=== PATIENT | male | born 1960 | race Caucasian/White ===

== ENCOUNTER 2017-07-01 05:39 | Day surgery (SDC) | payer OTHER ==
[~2017-07-01] VITALS: Ht 185.4 cm; Wt 176.0 kg
--- NOTE | ~2017-07-01 | O ---
[facility] [place] [address] OPERATIVE REPORT Name: BINH HERNANDEZ Room #: DEP [facility]..#: [id number] Admission: 07/01/17 Attend Phys: Refugio Tabares MD Discharge: 07/01/17 Date of : 56 Report #: [id number] THIS REPORT FOR: //name// CC: Shayan Tabares DATE OF SERVICE: 07/01/2017 PREOPERATIVE DIAGNOSIS: Right ankle peroneus longus and brevis tendon tears. POSTOPERATIVE DIAGNOSIS: Right ankle peroneus longus and brevis tendon tears. PROCEDURE: Right ankle peroneal tendon debridement with repair. SURGEON: Refugio Tabares M.D. BATHING SUIT MAKER: MANISH Sheldon. ANESTHESIA: General. ESTIMATED BLOOD LOSS: Minimal. DRAINS: None. TOURNIQUET TIME: 45 minutes. DESCRIPTION OF PROCEDURE: The patient brought to the operating room where he was placed under general anesthesia. Once under adequate general anesthesia, his right lower extremity was prepped and draped in sterile manner. The extremity was elevated, exsanguinated, tourniquet placed to 300 mmHg. A lateral incision just posterior to the fibula extending down to the base of the fifth metatarsal was made. This was dissected down through soft tissue to the peroneal tendon retinaculum. This was then incised and exposure was made of the peroneal tendons. The peroneus brevis tendon noted multiple longitudinal tears. The largest portion of tendon, which appeared healthy was then saved and the remainder was debrided with tenotomy scissors off of this tendon. This portion of the tendon was then tubularized with 3-0 Prolene suture in a running stitch manner. The peroneus longus tendon was thickened and fibrotic and noted significant laxity. This was debrided. A tendon rupture had occurred from the base of the first metatarsal. The tendon was then shortened, debrided and a tenodesis was then performed to the peroneus brevis tendon with 0 Ethibond suture. Excellent repair was achieved in this manner. The wound was then irrigated copiously and the retinaculum was then closed with 0 Ethibond suture, 2-0 Vicryl was used in subcutaneous tissues and jacky were used for the skin. The wounds were dressed with Xeroform, 4 x 4s, and sterile soft compressive dressing was placed. Tourniquet was let down at approximately [address] [address] OPERATIVE REPORT Name: MARYBINH Room #: DEP [facility] Raymundo#: [id number] Admission: 07/01/17 Attend Phys: Refugio Tabares MD Discharge: 07/01/17 Date of : 56 Report #: [id number] were pink and warm with good capillary refill. There were no complications from the procedure. The patient tolerated the procedure well and went to the recovery room without incident. <ELECTRONICALLY SIGNED> By: Refugio Tabares MD 07/03/17 1149 1248 1421 Refugio Tabares MD /nt
[~2017-07-01 05:39] MED LIST: ACCURETIC 10-11 EACH PO; ALDACTONE25 MG PO; ASPIRIN EC81 M1 PO; CO Q-10100 MG PO; COREG25 MG PO; FISH OIL 1,0001 EAC5 PO; LASIX 20 MG TAB20 MG PO; NORVASC5 MG PO; NUMOISYN300 ML PO; QUINU5 PD PO; ZESTORETIC 20-1 EAC3 PO
[2017-07-01 10:44] VITALS: BP 143/72
[2017-07-01 10:58] LABS: CALCIUM 9.3 mg/dL (8.5-10.1); CREATININE 1.4 mg/dL (0.7-1.3); POTASSIUM 4.2 mmol/L (3.5-5.1)
[2017-07-01] MEDS ORDERED: ASPIRIN325 PO (12:40)
[2017-07-01] MEDS ORDERED: PERCOCET 7.5-31 EACH PO (12:41)
[2017-07-01 13:01] VITALS: BP 143/72
== END 2017-07-01 13:50 | disposition home or self-care (01) ==
LOC: TBA 05:39 → OR 05:39
PROVIDERS: Orthopaedic Surgery Foot and Ankle Surgery
DX: S86.312A Strain of muscle(s) and tendon(s) of peroneal muscle group at lower leg level, left leg, initial encounter (principal); I10 Essential (primary) hypertension; G47.33 Obstructive sleep apnea (adult) (pediatric); Z98.890 Other specified postprocedural states; Z79.899 Other long term (current) drug therapy; Z79.82 Long term (current) use of aspirin; Z79.891 Long term (current) use of opiate analgesic; X58.XXXA Exposure to other specified factors, initial encounter; Y93.89 Activity, other specified; Y92.89 Other specified places as the place of occurrence of the external cause; Y99.8 Other external cause status
CPT/HCPCS: 50010; 50101; 50386; 51412; 56524; 56525; 57091; 62110; 62900; 70005

== ENCOUNTER → 2021-04-15 | Day surgery (SDC) | payer OTHER ==
[~2021-04-15] VITALS: Ht 185.4 cm; Wt 174.6 kg
[~2021-04-15] MED LIST changes: +ASPIRIN325 PO; +CO-ENZYME Q-1010 MG PO; +PERCOCET 7.5-31 EACH PO; +TYLENOL PM EX-1 EACH PO; +VITAMIN C500 M2 PO; +ZINC50 M3 PO
[2021-04-15 11:11] VITALS: BP 143/63
--- NOTE | 2021-04-15 12:17 | EKG ---
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
== END | disposition home or self-care (01) ==
LOC: OR 09:28
PROVIDERS: ATTEND Orthopaedic Surgery Foot and Ankle Surgery
DX: S86.302A Unspecified injury of muscle(s) and tendon(s) of peroneal muscle group at lower leg level, left leg, initial encounter (principal); Z53.8 Procedure and treatment not carried out for other reasons; I10 Essential (primary) hypertension; G47.30 Sleep apnea, unspecified; Z98.890 Other specified postprocedural states; Z20.822 Contact with and (suspected) exposure to COVID-19; Z85.46 Personal history of malignant neoplasm of prostate; Z79.899 Other long term (current) drug therapy; X58.XXXA Exposure to other specified factors, initial encounter; Y93.89 Activity, other specified; Y92.89 Other specified places as the place of occurrence of the external cause; Y99.8 Other external cause status